=== PATIENT | female | born 1970 | race African-American/Black ===

== ENCOUNTER 2019-05-13 09:00 | Outpatient (RCR) | payer BC, SELFPAY ==
--- NOTE | 2019-03-29 13:54 | HP.PTEVAL_ITS ---
Patient's Visit Information RUPERT MAO is a 48 year old F referred to Physical Therapy by MARIA DE JESUS DAVILA with a diagnosis of Bilateral knee OA. Date of Evaluation: 03/29/19 Physical Therapist: Bety Greenberg DPT - Visit Plan Frequency: 2x /Week Duration: 4 Weeks Plan: Aquatic- focus on LE and core s/s- functional mobility - Subjective Findings: Patient reports that both knees bother her the same around. She has had knee pain really bad for 2-3 years. Went to MD who did x-rays who showed OA. Has had injections through [facility]- coritsone and gel. Reports pain comes and goes. Stiffness today more than pain. The left does not bend. She does stairs non-recip. Worst: 8/10 Agg: work Pain is on the medial side of the left and right is more anterior. No radiating pain. Her back does bother her as well. Describes the pain as constant dull and achy. Best: 2/10 Eases: meds (Meloxicam), warm water, rest. No N/T in the toes. Sleep: disturbed- hard to get comfortable- wakes her up. Side sleeper. Has basement stairs at home and uses them- HR and goes one at a time. Does not exercises and is not active. PMHx: asthma Meds: Meloxicam, Gabapentin, Tylenol as needed. 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 Recent x-rays she needs to have TKR and needs to lose weight. - Objective Posture: FH, RS, increased kyphosis- pt is overweight. Stairs: asc/desc 8' nonrecip with 2 HR- does not use left LE. Gait: antalgic- decreased stance on the left LE with poor heel/toe pattern- slow shamar. HR/TR: able with UE A. SLS: Right: 5 sec Left: 3 sec. Palpation: tender to medial joint line on the left. Flex: HS: severe, Gastroc: severe. ROM: 0 degrees if extension bilaterally flexion left: 70 degrees right: 95 degrees- soft tissue appro ximation limiting. Strength: Ankle: 5/5,Knee: 4+/5, Hip: 4-/5 throughout Core: poor - Goals Goal 1:: Patient will be I with HEP and progression Goal Time Frame: 4-6 Weeks Goal 2:: Patient will asc/desc 8 stairs recip with 2 HR Goal Time Frame: 4-6 Weeks Goal 3:: Patient will report 2/10 pain for 1 week Goal Time Frame: 4-6 Weeks Goal 4:: Patient will report sleeping through the night Goal Time Frame: 4-6 Weeks Goal 5:: Patient will demo 5/5 strength in LE Goal Time Frame: 4-6 Weeks - Rehabilitation Potential Physical Therapy Diagnosis: Patient presents with hypomobility- she has decreased ROM, strength, flex and muscular endurance leading to increased pain with ADL's. Rehabilitation Potential: Good - Anticipated Interventions Therapeutic Exercise to Include: Strength training, Endurance training, Balance training, Agility training, Body mechanics, Postural training, Flexibilty training, Gait and locomotor training, In an aquatic setting, Passive ROM, Active ROM, Dynamic Lumbar Stabilization, Scapular Strength/Stabilization For the Purpose of:: To improve muscle performance and motor function Thank you for the opportunity to evaluate your patient. For Medicare and Medicare HMO plans, please review the plan of care and approve it. It will need to be FAXED BACK to us at [phone] for Medicare purposes. For Medicare only, by signing this I certify the plan of care. Please let me know if there are questions or concerns regarding this plan of care. Physician Signature: Date:
--- NOTE | 2019-08-31 11:46 | HP.PT.NRP ---
RUPERT MAO was seen in my office for initial evaluation on 03/29/19. The following Plan of Care was established for this patient: Initial Frequency: 2x /Week Initial Duration: 4 Weeks Therapeutic Exercise to Include: Strength training, Endurance training, Balance training, Agility training, Body mechanics, Postural training, Flexibilty training, Gait and locomotor training, In an aquatic setting, Passive ROM, Active ROM, Dynamic Lumbar Stabilization, Scapular Strength/Stabilization For the Purpose of:: To improve muscle performance and motor function This patient was last seen in our office . Pertinent comments regarding their Physical therapy will appear below: Patient has not attended PT for over 8 weeks- appropriate to be d/c at this time and follow up with MD as needed. At this point I will be discontinuing this patient from physical therapy. I would be happy to see this patient again in the future if found appropriate by the physician. Thank you! CARLITO GrahamT
== END 2019-05-13 19:00 | disposition home or self-care (01) ==
LOC: PT 09:00
PROVIDERS: Family Provider Student in an Organized Health Care Education/Training Program; PCP Student in an Organized Health Care Education/Training Program
DX: M17.0 Bilateral primary osteoarthritis of knee (principal)
CPT/HCPCS: 97113; 97162; 97164

== ENCOUNTER 2021-01-18 14:27 | Outpatient (CLI) | payer BC, SELFPAY ==
[2021-01-18 14:35] VITALS: BP 140/94; PULSE 97; RESP 16; TEMP 37.2; O2SAT 97; BMI 47.1
[2021-01-18] MEDS: 0.9% Saline Lock 10 ML Syringe IV (14:42)
[2021-01-18 15:20] VITALS: BP 128/79; PULSE 73; RESP 16; TEMP 36.8; O2SAT 99
[2021-01-18 16:31] VITALS: BP 132/79; PULSE 80; RESP 16; TEMP 36.7; O2SAT 100
== END 2021-01-18 16:32 | disposition home or self-care (01) ==
LOC: MS3OUT 14:27 → MS3 14:28
PROVIDERS: PCP Student in an Organized Health Care Education/Training Program; Referring Provider Nurse Practitioner Adult Health; Visit Provider Nurse Practitioner Adult Health
DX: Z23 Encounter for immunization (principal); U07.1 COVID-19
CPT/HCPCS: J7050; M0243; A4216; Q0244

== ENCOUNTER 2021-06-11 10:10 | Outpatient (RCR) | payer BC, SELFPAY | END 2021-06-18 23:59 | LOC: NS 10:10 | PROVIDERS: PCP Student in an Organized Health Care Education/Training Program; Visit Provider Orthopaedic Surgery | DX: Z71.3 Dietary counseling and surveillance (principal); E66.01 Morbid (severe) obesity due to excess calories; Z68.42 Body mass index [BMI] 45.0-49.9, adult | CPT/HCPCS: 97802 ==

== ENCOUNTER 2021-07-10 10:02 | Outpatient (RCR) | payer BC, SELFPAY | END 2021-07-19 23:59 | LOC: NS 10:02 | PROVIDERS: PCP Student in an Organized Health Care Education/Training Program; Referring Provider Orthopaedic Surgery; Visit Provider Orthopaedic Surgery | DX: Z71.3 Dietary counseling and surveillance (principal); E66.01 Morbid (severe) obesity due to excess calories; Z68.42 Body mass index [BMI] 45.0-49.9, adult | CPT/HCPCS: 97803 ==

== ENCOUNTER 2021-08-09 07:36 | Outpatient (RCR) | payer BC, SELFPAY | END 2021-08-18 23:59 | LOC: NS 07:36 | PROVIDERS: PCP Student in an Organized Health Care Education/Training Program; Referring Provider Orthopaedic Surgery; Visit Provider Orthopaedic Surgery | DX: Z71.3 Dietary counseling and surveillance (principal); E66.01 Morbid (severe) obesity due to excess calories; Z68.43 Body mass index [BMI] 50.0-59.9, adult | CPT/HCPCS: 97803 ==